=== PATIENT | male | born 1955 | race Caucasian/White ===

== ENCOUNTER 2021-07-29 07:17 | Day surgery (SDC) | payer BC ==
[2021-07-27 14:50] VITALS: BMI 29.2
[~2021-07-29 07:17] MED LIST: LIDOCAINE 1% (10MG/ML) FOR IV START INTRADERMA PRN
[2021-07-29 07:41] VITALS: TEMP 97.6
[2021-07-29] MEDS: LACTATED RINGERS 1,000 ML IV SCH ×2 (07:50→07:52)
[2021-07-29] MEDS ORDERED: LIDOCAINE 1% INJ 10MG/ML (20 ML MDV) ONE (07:53)
[2021-07-29] MEDS ORDERED: PROPOFOL 10 MG/ML 20 ML VIAL IV ONE (07:53)
--- NOTE | 2021-07-29 08:13 | P.PCN ---
Date of Procedure: 07/29/21 Procedure(s) Performed: BRIEF HISTORY: Patient is a 66-year-old pleasant male scheduled for an elective colonoscopy as a part of evaluation of prior history of colon polyps. Last colonoscopy was 5 years ago. PROCEDURE PERFORMED: Colonoscopy. PREOPERATIVE DIAGNOSIS: History of colon polyps. IV sedation per Anesthesia. PROCEDURE: After informed consent was obtained, the patient, was brought into the endoscopy unit. IV sedation was administered by Anesthesia under continuous monitoring. Digital rectal examination was normal. Initially the Olympus CF-160 flexible video colonoscope was then inserted in the rectum, gradually advanced into the cecum without any difficulty. Careful examination was performed as the scope was gradually being withdrawn. Ileocecal valve and the appendiceal orifice were visualized and appeared normal. Prep was poor and several areas of the colon. Thorough irrigation was performed. Visualized portions of the mucosa of the cecum, ascending colon, transverse colon, descending colon, sigmoid colon, and rectum appeared normal. Retroflexion was performed in the rectum and no lesions were seen. The patient tolerated the procedure well. IMPRESSION: Normal-appearing colon from rectum to cecum no evidence of colorectal neoplasia . Poor Prep and several areas of the colon RECOMMENDATIONS: Findings of this examination were discussed with the patient as well as his family. He was advised to have a repeat surveillance colonoscopy in 5 years from now because of the prior history of colon polyps.
[2021-07-29 08:38] VITALS: BP 109/64; PULSE 61; RESP 16
== END 2021-07-29 09:09 | disposition home or self-care (01) ==
LOC: ORWHC2ENDO 07:17
PROVIDERS: ATTEND Internal Medicine Gastroenterology
DX: Z12.11 Encounter for screening for malignant neoplasm of colon (principal); Z86.010 Personal history of colon polyps
CPT/HCPCS: 45378; J2001; J2704

== ENCOUNTER → 2021-09-15 | Outpatient (CLI) | payer BC ==
--- NOTE | 2021-09-15 16:09 | P.PN ---
Subjective Progress Note Date: 09/15/21 09/15/2021, on seeing the patient for a compliance check. Note that the patient had that evaluation the patient was diagnosed having moderately severe obstructive sleep apnea and his AHI currently is at 22.6. The patient accordingly underwent a CPAP titration the patient was started on a CPAP therapy at a pressure of 14 cm of water with C-Flex of 3. He was also given a large size Simplus fullface mask. Overall, is doing well. Is becoming more and more comfortable with the treatment. He was making up in the middle of the night probably related to some discomfort related to CPAP mask and he is doing better in that regard. He is waking up less for now and his sleep as become much more solid and less fragmented. I checked a compliance data in the data was collected between 08/16/2021 and 09/14/2021. Based on his 30 day compliancy, the patient has been averaging around 5 hours and 59 minutes of CPAP use per night. His CPAP use for more than 4 hours is at 80%. The patient has a mean leak of 9.8 L per minute and his AHI is down to 2.5 while on treatment. As such, the treatment has been successful for now. He is more rested. No nighttime shortness of breath or chest pain or heartburn. No burping or gases distention of the abdomen. No significant palpitations for now. No other complaints. Objective - Exam blood pressure is 133/76 with a pulse of 66 and respiration of 16 and a temperature of 97 5 and the patient has a weight of 237 pounds and pulse ox is 95%. The Seymour score is at 6. The patient appeared well nourished and normally developed. Vital signs as documented. Head exam is unremarkable. No scleral icterus or corneal arcus noted. Neck is without jugular venous distension, thyromegaly, or carotid bruits. Carotid upstrokes are brisk bilaterally. Lungs are clear to auscultation and percussion. Cardiac exam reveals the PMI to be normally sized and situated. Rhythm is regular. First and second heart sounds normal. No murmurs, rubs or gallops. Abdominal exam reveals normal bowel sounds, no masses, no organomegaly and no aortic enlargement. Extremities are nonedematous and both femoral and pedal pulses are normal.Examination of the skin revealed no evidence of significant rashes, suspicious appearing nevi or other concerning lesions.Neurologically, the patient is awake and alert and the patient does not have any focal neurological deficit. Cranial nerves are essentially intact. Assessment and Plan Plan: 1 obstructive sleep apnea, moderately severe with an AHI of 22. The patient is being successfully treated with a CPAP pressure of 14 cm of water. Clinically improved and the patient 5 feet it was checked and the treatment is successful at this point in time 2 history of palpitations 3 history of nasal septal deviation recovered with surgical repair 4 depression 5 degenerative arthritis 6 history of esophageal stricture/spasm Plan Treatment is successful for now. Continue CPAP therapy at a pressure of 14 cm of water. The patient has a large sessile Simplus fullface mask. Alternatively, I offered the airfit F20 fullface mask large size. I checked a compliance data. No need for any further adjustment. She was successful in this patient's AHI is down to 2. As such, the treatment successful. The patient will continue CPAP therapy and the patient will see back in a year's time in follow-up.
== END ==
LOC: SLEEP 14:38
PROVIDERS: ATTEND Internal Medicine Critical Care Medicine
DX: G47.33 Obstructive sleep apnea (adult) (pediatric) (principal); F32.A Depression, unspecified; M19.90 Unspecified osteoarthritis, unspecified site; Z99.89 Dependence on other enabling machines and devices; Z86.79 Personal history of other diseases of the circulatory system; Z87.09 Personal history of other diseases of the respiratory system; Z87.19 Personal history of other diseases of the digestive system

== ENCOUNTER → 2022-02-23 | Outpatient (CLI) | payer BC ==
--- NOTE | 2022-02-24 09:07 | PN ---
PROGRESS NOTE This patient is known to have obstructive sleep apnea, AHI of 22, coming in for a followup. He remains on a CPAP pressure of 14 cm of water. He is having a low pressure sensation especially at the beginning of the treatment and I noted that his starting pressure is at 4 and the patient has an automatic ramp time. I increased the pressure up to 8 cm of water and the patient felt much better. At the same time, the patient is utilizing a Dream[employer]ear fullface mask large size and the mask fit is great at this point in time. He was having difficulties with sleep maintenance and he was started on trazodone 50 mg at bedtime and he is feeling much better. He is able to establish good 4 to 5 hours of sleep without having to wake up. No issues or active arthritis at this point in time. No anxiety or depression at this point in time. I checked the compliance and his AHI is down to less than 5 and the patient is averaging more than 5 hours of sleep per night. PHYSICAL EXAMINATION: VITAL SIGNS: BP is 124/80, pulse 71, respirations 16, temperature 97.7, saturation 97% on room air. Weight is 235, height is 6 feet 0 inches. GENERAL APPEARANCE: Calm, comfortable. HEENT: Head atraumatic, normocephalic. NECK: Supple. No JVD. No goiter or neck mass. LUNGS: Clear to auscultation. HEART: Sounds regular, rhythm normal. S1, S2. No S3, no murmurs. ABDOMEN: Soft, nontender. No organomegaly. EXTREMITIES: No edema, cyanosis, or clubbing. MEDICATIONS: 1. Omeprazole 20 daily. 2. Celebrex 200 mg p.o. daily. 3. Cardizem 120 mg p.o. daily. 4. Propranolol 10 mg p.o. daily. 5. Zyrtec 10 daily. 6. Trazodone 50 at bedtime. 7. Cardizem 120 mg p.o. daily. 8. Effexor 225 mg 1 tab a day. IMPRESSION: 1. Obstructive sleep apnea, moderate severe AHI of 22.6, currently on CPAP pressure of 14 cm of water. 2. Sleep maintenance, insomnia, maintained on Trazodone with improvement in sleep quality and ability to maintain sleep. 3. Degenerative arthritis. 4. Depression. 5. History of esophageal stricture/spasm. 6. History of nasal septal deviation, surgically corrected. PLAN: 1. Increase the starting pressure to 8 cm of water and keep the set pressure at 14. 2. Encourage weight loss. 3. Maintain trazodone 50 mg at bedtime for sleep induction and maintenance. 4. Treatment is successful and the patient is content with his overall clinical response. The patient will be seen back in a year's time at the pulmonary office. MMAILYN / RADHAN: [id number] /
== END ==
LOC: SLEEP 15:13
PROVIDERS: ATTEND Internal Medicine Critical Care Medicine
DX: G47.33 Obstructive sleep apnea (adult) (pediatric) (principal); Z99.89 Dependence on other enabling machines and devices; F32.A Depression, unspecified; M19.90 Unspecified osteoarthritis, unspecified site; Z98.890 Other specified postprocedural states; Z87.19 Personal history of other diseases of the digestive system